=== PATIENT | male | born 1955 | race Caucasian/White ===

== ENCOUNTER 2017-03-20 05:50 | Day surgery (SDC) | payer BC ==
[~2017-03-20] VITALS: Ht 180.3 cm; Wt 85.6 kg
[2017-03-20 07:08] VITALS: Ht 180.3 cm; Wt 85.6 kg
[2017-03-20] MEDS ORDERED: ASPIRIN (07:13)
[2017-03-20] MEDS ORDERED: PROPOFOL 20 ML ONE (07:14)
[2017-03-20] MEDS ORDERED: LIDOCAINE 2% (SDV) 5 ML INJ ONE (07:14)
[2017-03-20 07:40] VITALS: BP 131/83; PULSE 72; RESP 18
--- NOTE | 2017-03-20 08:23 | OPPN ---
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
[2017-03-20 08:52] VITALS: BP 132/80; PULSE 74; RESP 18
--- NOTE | 2017-03-20 12:17 | GILP ---
DATE OF PROCEDURE: 03/20/2017 NAME OF PROCEDURES: Colonoscopy and biopsy. SURGEON: Cele Wilde MD PREOPERATIVE DIAGNOSIS: Screening colonoscopy. POSTOPERATIVE DIAGNOSES 1. Colonoscopy all the way to the cecum. 2. Two small sigmoid colon polyps were removed using the biopsy forceps. 3. Internal hemorrhoids. INDICATION FOR THE PROCEDURE: Mr. Samuel Duggan is a 61-year-old male patient who was scheduled fo r screening colonoscopy. The procedure and possible complications are well explained to the patient. The patient understood and consented to the procedure. DESCRIPTION OF PROCEDURE: Under the influence of anesthesia, the colonoscope was carefully introduc ed in the rectum and under direct vision it was advanced all the way to the cecum. FINDINGS: The patient had 2 small sigmoid colon polyps and they were removed using the biopsy force ps. He was noted to have internal hemorrhoids. The patient tolerated the procedure very well and there was no complication from the procedure. At the end of the procedure, he was awake with stable vital signs and he was discharged home to the car e of his family. IMPRESSION: Please see postoperative diagnosis. PLAN: 1. Await histopathology report. 2. Next screening colonoscopy in 10 years. Dictated By: CELE MORALEZ/SAM Conf#: [id number] DID#: [id number]
--- NOTE | 2017-03-21 19:07 | CONS ---
DATE OF ADMISSION: 03/20/2017 DATE OF CONSULTATION: PATIENT NAME: SAMUEL CHENEY PREOPERATIVE GASTROENTEROLOGY CONSULTATION Dear Dr. Jim, I thank you very much for this kind referral. HISTORY OF PRESENT ILLNESS: Mr. Samuel Cheney is a 61-year-old male patient who has been referred to me for further evaluation of change in the bowel habit with episodes of diarrhea. The patient orona s been taking fiber. No past history of inflammatory bowel disease. The patient had last colonosco py more than 10 years ago, and he needs screening colonoscopy. He has a family history of colon can cer. He does not have any upper abdominal pain, nausea or vomiting. He has been taking aspirin for various pains. No history of gallstones or liver disease. Not hypertensive or diabetic. No heart disease or lung problem. No kidney disease. Nonsmoker. No alcohol abuse. The patient's mother h ad colon cancer. NO DRUG ALLERGIES. MEDICATIONS: Aspirin p.r.n. PHYSICAL EXAMINATION: GENERAL: He is 5 feet 11 inches tall and weighs 185 pounds. HEART: Normal heart sounds. LUNGS: Clear. ABDOMEN: Soft. No masses. Normal bowel sounds. NEUROLOGIC: Normal exam. IMPRESSION: 1. Change in the bowel habit with episodes of diarrhea. 2. The patient has been taking fiber. 3. Family history of colon cancer. 4. The patient's mother has colon cancer. 5. The patient needs screening colonoscopy. 6. The patient takes aspirin for various pains. PLAN: 1. Screening colonoscopy. 2. Because of the short thick neck, the patient needs monitored anesthesia care. The procedure and possible complications were well explained to the patient. He understands and con sents to the procedure. I thank you once again. With warmest personal regards, Dictated By: CELE MORALEZ/NTS Conf#: [id number] DID#: [id number] CC: Dr. Jim;*EndCC*
== END 2017-03-20 12:06 | disposition home or self-care (01) ==
LOC: GIL 05:50
PROVIDERS: ATTEND Internal Medicine Gastroenterology
DX: Z12.11 Encounter for screening for malignant neoplasm of colon (principal); D12.5 Benign neoplasm of sigmoid colon
CPT/HCPCS: 88305